=== PATIENT | female | born 1995 | race Caucasian/White ===

== ENCOUNTER 2019-07-16 13:37 | Day surgery (SDC) | payer OTHER ==
--- NOTE | 2019-07-16 11:41 | OP ---
DATE OF PROCEDURE: 07/16/2019 PREOPERATIVE DIAGNOSIS: Trena breech presentation at 37 weeks' gestation. POSTOPERATIVE DIAGNOSIS: Trena breech presentation at 37 weeks' gestation. PROCEDURE PERFORMED: Attempted external cephalic version, unsuccessful. MEDICATIONS: 0.25 terbutaline subcu x1. COMPLICATIONS: None. OPERATIVE FINDINGS: 1. Trena breech presentation with head and maternal right upper quadrant back along maternal right and trena breech presentation with fundal placenta and ANTHONY of less than 10. 2. Inability to convert to breech presentation beyond approximately 45 to 60 degrees laterally with extended attempted external cephalic version. 3. heart rate decelerations 70s x1 with immediate recovery. 4. Well tolerated by the patient. DISPOSITION: Follow up with Dr. Maria Esther Murdock after approximately 1 to 2 hours observation of labor and delivery. DESCRIPTION OF PROCEDURE: The patient gave verbal and written informed consent for the procedure. Dr. Murdock was present. She received terbutaline subcu 0.25 and after approximately 5 minutes, attempted external cephalic version was carried out with ultrasound guidance. position was as noted in the operative findings. The 's breech was elevated at first out of the pelvis and directed to the left lower quadrant, attempting to do a counter-clockwise backward roll with the fetus because the head was in the right upper quadrant. This was unsuccessful and really never achieved more than approximately 5 to 10 degree movement of the head. After several minutes, decision was made to proceed with a forward roll. After attempting to do a backward roll, the heart rate deceleration was noted. It only lasted for about 10 seconds and immediately recovered. A minute or two was allowed for recovery and oxygen applied to the mother. Forward roll was attempted, and the head was brought from the maternal right upper quadrant to the maternal left upper quadrant and almost reaching approximately 80 degree heading of the head on the maternal left with elevation of the breech to the maternal right. However, further rotation was not possible. After extended attempt at extending the forward roll, decision was made to abandon attempted external cephalic version. The patient tolerated the procedure well. Approximately 1 to 2 hours of continuous monitoring will be carried out. The patient will follow up with Dr. Maria Esther Murdock. Job ID: [id number]
== END 2019-07-16 14:00 | disposition home or self-care (01) ==
LOC: L&D/OP 13:37
PROVIDERS: ATTEND Obstetrics & Gynecology
PROC: 10S0XZZ Reposition Products of Conception, External Approach (ICD-10-PCS; principal; 2019-07-16)
DX: O32.1XX0 Maternal care for breech presentation, not applicable or unspecified (principal); Z3A.37 37 weeks gestation of pregnancy

== ENCOUNTER 2019-07-30 05:16 | Inpatient (IN) | payer OTHER ==
[2019-07-30] MEDS ORDERED: Ondansetron PF 4 MG/2 ML Vial IVP PRN ×3 (05:44→10:19)
[2019-07-30] MEDS ORDERED: Lactated Ringer's 1,000 ML IV SCH (05:44)
[2019-07-30] MEDS ORDERED: Promethazine HCl 25 MG/ML VIAL IM PRN ×2 (05:44→08:17)
[2019-07-30] MEDS ORDERED: hydrALAZINE 20 MG/ML VIAL SLOW IVP PRN ×2 (05:44→10:19)
[2019-07-30 05:49] VITALS: BMI 24.9
[2019-07-30] MEDS ORDERED: Bicitra 30 ML UDCUP PO SCH (06:00)
[2019-07-30] MEDS ORDERED: CEFAZOLIN 2 GM in Premix Bag 1 BAG IVPB SCH (06:00)
[2019-07-30 06:41] LABS: Hemoglobin 13.6 g/dL (12.0-16.0); Mean Corpuscular HGB CONC 35.6 g/dL (32.0-36.0); Mean Corpuscular Hemoglobin 33.8 pg (27.0-31.0); Mean Corpuscular Volume 94.9 fL (78.0-98.0); Mean Platelet Volume 10.6 fL (7.4-10.4); Platelet Count 126 thou/uL (130-400); RBC Distribution Width 11.6 % (11.5-14.5); Red Blood Cell (RBC) Count 4.04 mill/uL (4.20-5.40); White Blood Cell (WBC) Count 10.6 thou/uL (4.8-10.8)
[2019-07-30] MEDS ORDERED: MORPHINE 5 MG/10 ML PF VIAL ONE (06:56)
[2019-07-30] MEDS ORDERED: PHENYLEPHRINE-NS 100 MCG/ML 10 ML SYRINGE ONE (07:02)
[2019-07-30] MEDS ORDERED: ePHEDrine/0.9% NaCl/PF SYRINGE 50 mg/10 ml ONE (07:03)
[2019-07-30] MEDS ORDERED: Oxytocin 10 UNITS/ML VIAL ONE (07:03)
[2019-07-30] MEDS ORDERED: Ondansetron PF 4 MG/2 ML Vial ONE (07:03)
[2019-07-30 07:21] LABS: Syphilis Antibody Nonreactive (Nonreactive); Syphilis Antibody Index 0.05 S/CO (<1.00 Non-Reactive)
[2019-07-30 07:23] LABS: HBSAg Index 0.21 S/CO (0-0.99); Hep B Surf Ag Non-Reactive S/CO (NonReactive)
[2019-07-30] MEDS ORDERED: Ketorolac Tromethamine 30 MG/ML VIAL ONE (07:52)
[2019-07-30] MEDS ORDERED: Naloxone HCl 0.4 mg/ml Vial IV PRN (08:17)
[2019-07-30] MEDS ORDERED: diphenhydrAMINE 50 MG/ML VIAL IVP PRN (08:17)
[2019-07-30] MEDS ORDERED: Naloxone HCl 0.4 mg/ml Vial IVP PRN ×2 (08:17)
[2019-07-30] MEDS ORDERED: Communication Order-Pharmacy FS SCH (08:30)
[2019-07-30] MEDS ORDERED: Promethazine HCl 25 MG/ML VIAL ONE (09:19)
[2019-07-30] MEDS: Levothyroxine Sodium 88 MCG TAB PO SCH (09:48)
[2019-07-30] MEDS ORDERED: Adacel (T-DAP) 0.5 ML SYRINGE IM ONE (10:19)
[2019-07-30] MEDS ORDERED: Lanolin Ointment 7 GM TUBE TOP PRN (10:19)
[2019-07-30] MEDS ORDERED: Docusate Calcium (SURFAK) 240 MG CAP PO SCH (10:30)
[2019-07-30] MEDS ORDERED: Ferrous Sulfate 325 MG TAB PO SCH (10:30)
--- NOTE | 2019-07-30 11:54 | OP ---
DATE OF PROCEDURE: 07/30/2019 PREOPERATIVE DIAGNOSES: 1. Intrauterine at 39 weeks. 2. Trace breech presentation. POSTOPERATIVE DIAGNOSES: 1. Intrauterine at 39 weeks. 2. Trace breech presentation. PROCEDURE: Primary lower transverse section. ANESTHESIA: Spinal. BIOCHEMISTRY TEACHER: Resident, Dr. Alonso. COMPLICATIONS: None. COUNTS: Correct. CONDITION: Stable to recovery room. ESTIMATED BLOOD LOSS: 500 mL. FINDINGS: Male infant delivered at 0751 hours on 07/30/2019 at 39 weeks and 1 day gestation. Weight is 3470 g, Apgars unavailable at time of dictation. The patient was taken to the operating room after being counseled of the risks and benefits of a primary for breech presentation. She was put prepared and draped in normal sterile fashion and placed in a supine position with a leftward tilt. She was prepared and draped in normal sterile fashion. Attention was then placed abdominally, where a Pfannenstiel skin incision was made and carried down to the level of fascia. Fascia was incised and the fascial incision was extended laterally with Romero scissors. Fascia was dissected bluntly off the rectus muscles underneath both superiorly and inferiorly. Peritoneal cavity was entered into bluntly and extended bluntly. Tayo O retractor was then inserted. The lower uterine segment was evaluated and a transverse incision was made on the lower uterine segment. The fetus was then delivered in trace breech presentation, delivering the baby to the level of scapula, and then using a moist towel to assist, the baby was rotated to deliver the superior arm and then rotated to the other direction and the right arm was then delivered with care to sweep the arm in the midline anterior position. Once this was completed, the head delivered fairly easily through the hysterotomy with minimal fundal pressure. The infant was then bulb suction, cleaned and the cord was clamped and cut, and the was handed off to awaiting attendance. Cord blood was collected. Placenta delivered spontaneously with a little bit of massage. The hysterotomy was then closed with 1-0 Monocryl in a running locked fashion followed by a second imbricating layer. Good hemostasis was noted after irrigation. The peritoneum was then closed with 2-0 chromic in a running fashion. The fascia was closed with 0 Vicryl in a running fashion. The subcutaneous fat was closed with 3-0 plain gut in a running fashion. The skin was closed with 4-0 Monocryl in a running fashion. The patient tolerated the procedure well and was sent to recovery in stable condition. Job ID: [id number]
[2019-07-30] MEDS: Ketorolac Tromethamine 30 MG/ML VIAL IVP PRN ×2 (13:14→19:03)
[2019-07-30] MEDS: Ferrous Sulfate 325 MG TAB PO SCH (17:14)
[2019-07-30] MEDS: Docusate Calcium (SURFAK) 240 MG CAP PO SCH (23:30)
[2019-07-31] MEDS: Ketorolac Tromethamine 30 MG/ML VIAL IVP PRN (00:23)
[2019-07-31] MEDS: HYDROcodone/Acetaminophen 5/325 mg Tablet PO PRN ×5 (04:56→21:37)
[2019-07-31 05:35] LABS: Hemoglobin 11.6 g/dL (12.0-16.0); Mean Corpuscular HGB CONC 34.2 g/dL (32.0-36.0); Mean Corpuscular Hemoglobin 33.2 pg (27.0-31.0); Mean Corpuscular Volume 96.9 fL (78.0-98.0); Mean Platelet Volume 9.9 fL (7.4-10.4); Platelet Count 112 thou/uL (130-400); RBC Distribution Width 11.8 % (11.5-14.5); Red Blood Cell (RBC) Count 3.49 mill/uL (4.20-5.40); White Blood Cell (WBC) Count 11.9 thou/uL (4.8-10.8)
[2019-07-31] MEDS: Levothyroxine Sodium 88 MCG TAB PO SCH (05:39)
--- NOTE | 2019-07-31 06:01 | PDOC.PP ---
Post Progress Note Post Day #: 1 Subjective: Doing well, OOB to chair PO intake tolerated: yes Flatus: yes Ambulation: yes Vital Signs (12 hours) Temp Pulse Resp BP Pulse Ox 07/31/19 04:40 98.3 F 71 18 119/79 97 07/31/19 00:15 98.9 F 64 18 118/66 07/30/19 19:50 98.9 F 78 12 104/54 L 97 Weight Weight 169 lb - Physical Examination General: NAD Cardiovascular: no m/r/g Respiratory: non-labored breathing Abdominal: no distention, appropriately TTP Extremities: negative homans (B) Skin: CS incision dry & intact (incision sutured), no rash Neurological: no gross focal deficits Psychiatric: A&Ox3, normal affect Result Diagrams: 07/31/19 05:18 Additional Labs: Post Labs Blood Type O POSITIVE 07/30/19 06:57 Hep Bs Antigen Non-Reactive S/CO (NonReactive) 07/30/19 06:34 (1) Delivery by section Code(s): [id number] - Status: Acute (2) Breech delivery Code(s): O32.1XX0 - MATERNAL CARE FOR BREECH PRESENTATION, UNSP Status: Acute - Assessment/Plan POD 1 from scheduled CS for breech (prior with first). Patient was OOB to chair this am, looks wel. Possible dsch tomorrow if able or POD3
[2019-07-31] MEDS: Ferrous Sulfate 325 MG TAB PO SCH ×2 (07:30→17:04)
[2019-07-31] MEDS: Docusate Calcium (SURFAK) 240 MG CAP PO SCH ×2 (09:13→20:59)
[2019-07-31] MEDS: Ibuprofen 800 MG TAB PO SCH ×2 (13:19→20:57)
[2019-07-31] MEDS ORDERED: Simethicone Chewable 80 MG TAB PO PRN (13:54)
[2019-08-01] MEDS: HYDROcodone/Acetaminophen 5/325 mg Tablet PO PRN ×4 (05:21→18:43)
[2019-08-01] MEDS: Ibuprofen 800 MG TAB PO SCH ×3 (05:21→21:32)
[2019-08-01] MEDS: Levothyroxine Sodium 88 MCG TAB PO SCH (05:25)
[2019-08-01] MEDS: Ferrous Sulfate 325 MG TAB PO SCH ×2 (07:27→16:46)
[2019-08-01] MEDS: Docusate Calcium (SURFAK) 240 MG CAP PO SCH ×2 (09:50→21:32)
[2019-08-02] MEDS: HYDROcodone/Acetaminophen 5/325 mg Tablet PO PRN ×2 (01:26→07:46)
[2019-08-02] MEDS: Ibuprofen 800 MG TAB PO SCH ×2 (06:41→07:45)
[2019-08-02 08:32] VITALS: BP 133/77; TEMP 98.3
[2019-08-02] MEDS: Docusate Calcium (SURFAK) 240 MG CAP PO SCH (09:46)
== END 2019-08-02 11:15 | disposition home or self-care (01) | DRG 788 ==
LOC: L&D 05:16 → UNDOADMIN 05:16 → L&D-LIB 05:16 → 3SW 10:34
PROVIDERS: ADMIT Family Medicine; ATTEND Family Medicine
PROC: 10D00Z1 Extraction of Products of Conception, Low, Open Approach (ICD-10-PCS; principal; 2019-07-30)
DX: O32.1XX0 Maternal care for breech presentation, not applicable or unspecified (principal); Z3A.39 39 weeks gestation of pregnancy; Z37.0 Single live birth; O99.284 Endocrine, nutritional and metabolic diseases complicating childbirth; E03.9 Hypothyroidism, unspecified
CPT/HCPCS: 36415; 51702; 85027; 86780; 86850; 86900; 86901; 87340; J0690; J1885; J2274; J2405; J2550; J2590

== ENCOUNTER 2023-04-12 12:48 | Outpatient (CLI) | payer BC | END 2023-04-12 12:49 | disposition home or self-care (01) | LOC: ULT 12:48 | PROVIDERS: ATTEND Family Medicine | DX: R10.2 Pelvic and perineal pain (principal) | CPT/HCPCS: 76856 ==